=== PATIENT | male | born 1935 | race Hispanic/Latino ===

== ENCOUNTER 2020-06-12 08:57 | Day surgery (SDC) | payer MEDICARE ==
[2020-06-12 09:52] LABS: Basophils % (Auto) 0.6 % (0.0-1.8); Eosinophils # (Auto) 0.3 K/mm3 (0.0-0.4); Eosinophils % (Auto) 3.6 % (0.0-4.3); Hematocrit 36.8 % (35.5-45.6); Lymphocytes # (Auto) 2.1 K/mm3 (1.2-5.4); Lymphocytes % (Auto) 26.3 % (13.4-35.0); Mean Corpuscular HGB Conc 33 % (32-34); Mean Corpuscular Volume 94 fl (84-94); Monocytes # (Auto) 0.8 K/mm3 (0.0-0.8); Monocytes % (Auto) 9.8 % (0.0-7.3); Platelet Count 185 K/mm3 (140-440); Red Blood Count 3.92 M/mm3 (3.65-5.03); Red Cell Distribution Width 13.6 % (13.2-15.2)
[2020-06-12] MEDS ORDERED: SODIUM CHLORIDE IRRI 1000 ML 1,000 ML, .VANCOMYCIN VIAL 1,000 MG IR ONE (10:00)
[2020-06-12] MEDS ORDERED: SODIUM CHLORIDE 0.45% 1000 ML 1,000 ML IV SCH (10:00)
[2020-06-12 10:02] LABS: INR 1.03 (0.87-1.13)
[2020-06-12 10:28] LABS: BUN/Creatinine Ratio 20; Blood Urea Nitrogen 22 mg/dL (9-20); Calcium 9.1 mg/dL (8.4-10.2); Hemolysis Index 0
[2020-06-12] MEDS ORDERED: LIDOCAINE (1%) 10 MG/1 ML VIAL 20 ML MDV ONE (10:37)
[2020-06-12] MEDS ORDERED: ceFAZolin/Water 2 GM/20 ML 2 GM/20 ML SYRINGE IV ONE (10:37)
[2020-06-12] MEDS ORDERED: SODIUM CHLORIDE IRRI 500 ML 500 ML IR ONE (10:37)
[2020-06-12] MEDS ORDERED: BUPIVACAINE/PF (0.5%) 5 MG/1 ML 30 ML VIAL INFILTRATI ONE (10:37)
--- NOTE | 2020-06-12 10:39 | Anesthesia Consultation ---
Anesthesia Consult and Med Hx Date of service: 06/12/20 - Airway Anesthetic Teeth Evaluation: Poor, Crowns (missing teeth, one broken off) ROM Head & Neck: Adequate Mental/Hyoid Distance: Adequate Mallampati Class: Class II Intubation Access Assessment: Probably Good - Pre-Operative Health Status ASA Pre-Surgery Classification: ASA3 Proposed Anesthetic Plan: MAC - Pulmonary Hx Smoking: No - Cardiovascular System Hx Hypertension: Yes Hx Coronary Artery Disease: Yes Hx Heart Attack/AMI: Yes (1989, CABG - 1989) Hx Pacemaker: Yes Hx Internal Defibrillator: Yes - Central Nervous System Hx Back Pain: Yes (right hip replacement) Hx Psychiatric Problems: No - Other Systems Hx Cancer: No
--- NOTE | 2020-06-12 10:40 | Anesthesia Day of Surgery ---
Anesthesia Day of Surgery - Day of Surgery Patient Examined: Yes Patient H&P Reviewed: Yes Patient is NPO: Yes Beta Blockers: Yes (took atenolol last night)
[2020-06-12] MEDS ORDERED: propofoL 200 MG/20 ML VIAL IV ONE ×3 (11:19)
[2020-06-12] MEDS ORDERED: HYDROmorphone 1 MG/1 ML INJ ONE (11:19)
[2020-06-12] MEDS ORDERED: MIDAZOLAM 2 MG/2 ML INJ ONE (11:19)
[2020-06-12] MEDS ORDERED: LIDOCAINE MPF (2%) 20 MG/1 ML VIAL 5 ML ONE (11:20)
[2020-06-12] MEDS ORDERED: .VANCOMYCIN VIAL 1,000 MG in SODIUM CHLORIDE IRRI 1000 ML 1,000 ML IRRIGATION ONE (12:18)
[2020-06-12 14:34] VITALS: BP 160/70
--- NOTE | 2020-06-12 16:00 | Post Anesthesia Evaluation ---
- Post Anesthesia Evaluation Patient Participated: Yes Airway Patent: Yes Stable Respiratory Function: Yes Nausea/Vomiting: No Temp > 96.8F: Yes Pain Manageable: Yes Adequeate Hydration: Yes Anesthesia Complications: No
--- NOTE | 2020-06-12 20:09 | Electrophysiological Studies ---
PREPROCEDURE DIAGNOSIS: Biventricular cardiac defibrillator at [facility]. PROCEDURE PERFORMED: Biventricular cardiac defibrillator generator change out. DESCRIPTION OF PROCEDURE: The patient was brought to the general production laborer. The patient was prepped and draped in the usual sterile fashion. Local anesthesia was obtained with lidocaine. Antibiotics were given prior to the procedure for surgical prophylaxis. A 3 cm incision was made over the old device. The fibrous capsule was incised and the old device was removed from the pocket. The leads were inspected and had intact insulation and conductors. Pacing thresholds and electrogram were satisfactory. The pocket was irrigated with antibiotic-containing solution. Adequate electrical parameters were confirmed prior to the attachment of the defibrillator pulse generator to the leads. The leads and generator were then inserted into the pocket. Closure was obtained using 2-0 Vicryl, 3-0 Vicryl and 4-0 Vicryl for a subcuticular closure. The incision was then protected with Steri-Strips, gauze, and clear adhesive dressing was applied. COMPLICATIONS: None. ASSESSMENT: Successful biventricular defibrillator generator change out. PLAN: Incision check in 8-10 days. JOB# [id number] DENI/ALFREDA
== END 2020-06-12 15:35 | disposition home or self-care (01) ==
LOC: CATHLABREC 08:57
PROVIDERS: ATTEND Internal Medicine Cardiovascular Disease
DX: Z45.02 Encounter for adjustment and management of automatic implantable cardiac defibrillator (principal); I25.10 Atherosclerotic heart disease of native coronary artery without angina pectoris; I67.2 Cerebral atherosclerosis; I11.0 Hypertensive heart disease with heart failure; I50.9 Heart failure, unspecified; I25.5 Ischemic cardiomyopathy; E78.2 Mixed hyperlipidemia; M19.90 Unspecified osteoarthritis, unspecified site; Z79.899 Other long term (current) drug therapy; Z79.82 Long term (current) use of aspirin; Z98.49 Cataract extraction status, unspecified eye; Z95.1 Presence of aortocoronary bypass graft; Z90.49 Acquired absence of other specified parts of digestive tract; Z98.890 Other specified postprocedural states; Z95.810 Presence of automatic (implantable) cardiac defibrillator; Z72.89 Other problems related to lifestyle; Z87.891 Personal history of nicotine dependence
CPT/HCPCS: 33264; 36415; 80048; 85025; 85610; 85730; 93005; 93640; C1882; J0690; J1170; J2250; J2704; J3370; J7030; C1722